=== PATIENT | female | born 1970 | race Caucasian/White ===

== ENCOUNTER 2017-02-06 11:09 | Emergency (ER) | payer OTHER ==
[~2017-02-06] VITALS: Ht 165.1 cm; Wt 54.4 kg
--- NOTE | 2017-02-06 11:20 | NUR ---
PT TO ER BED 15. C/O COUGH AND CONGESTION, GENERALIZED WEAKNESS WORST TO HER NECK. PT STATES SYMPTOMS STARTED YESTERDAY. PT IS [employer]CH[employer]. PLACED ON MONITOR. STABLE VITALS. AWAITING MD BERRIOS.
--- NOTE | 2017-02-06 11:40 | NUR ---
DR LEONARD AT BEDSIDE FOR EVAL.
--- NOTE | 2017-02-06 12:09 | NUR ---
Patient discharged to home in stable condition. Written and verbal after care instructions given. Patient verbalizes understanding of instruction.
[2017-02-06 12:10] VITALS: BP 132/80
== END 2017-02-06 12:11 | disposition home or self-care (01) ==
LOC: ER 11:13
DX: B34.9 Viral infection, unspecified (principal); F12.10 Cannabis abuse, uncomplicated; F17.200 Nicotine dependence, unspecified, uncomplicated; Z98.84 Bariatric surgery status
CPT/HCPCS: A4606; Z7502; Z7610